=== PATIENT | male | born 1990 | race Caucasian/White ===

== ENCOUNTER 2017-10-11 06:46 | Emergency (ER) | payer OTHER ==
[2017-10-11] MEDS ORDERED: Lidocaine 2% Inj (20ml) INFIL ONE (07:15)
[2017-10-11] MEDS ORDERED: Lidocaine 2% MPF (5 ml) Inj ONE ×2 (07:38→07:40)
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
[2017-10-11 08:44] VITALS: BP 103/62; PULSE 79; RESP 16; TEMP 97.9
[2017-10-11 08:48] VITALS: O2SAT 99
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
== END 2017-10-11 08:51 | disposition home or self-care (01) ==
LOC: C.ER 06:46
DX: S41.011A Laceration without foreign body of right shoulder, initial encounter (principal); W22.8XXA Striking against or struck by other objects, initial encounter